=== PATIENT | female | born 1950 | race Caucasian/White ===

== ENCOUNTER 2016-04-28 10:25 | Emergency (ER) | payer SELFPAY ==
[~2016-04-28] VITALS: Wt 89.0 kg
[~2016-04-28 10:25] MED LIST: GLIP5TAB82; NAPR-638; SERT100T; VALS40TA2
--- NOTE | 2016-04-28 12:20 | EN ---
Date/Time of Note Date/Time of Note DATE: 04/28/16 TIME: 12:19 ER Progress Note Patient was not in the room when I went to see her. Patient cannot be found anywhere in the emergency department at this time. TO PETERSON NP Apr 28, 2016 12:20
== END 2016-04-28 15:05 | disposition left against medical advice (07) ==
LOC: FTE 10:25
DX: Z53.21 Procedure and treatment not carried out due to patient leaving prior to being seen by health care provider (principal)

== ENCOUNTER 2016-05-21 00:36 | Emergency (ER) | payer BC ==
[~2016-05-21] VITALS: Ht 170.2 cm; Wt 85.0 kg
[2016-05-21 01:08] VITALS: Ht 170.2 cm; Wt 85.0 kg
--- NOTE | 2016-05-21 02:14 | ERD ---
ER Documentation Chief Complaint Date/Time DATE: 05/21/16 TIME: 02:14 Chief Complaint Back pain. herniated disk. hx of back pain HPI Patient is a 65-year-old female past medical history of chronic back pain who presents to the emergency department the acute exacerbation of lower back pain. She states that her current pain level is 7 out of 10. Patient has been taking oxycodone daily for her pain. Patient states she last took oxycodone 3 hours ago. Patient states that the pain is in her lower back and radiates down both of her legs. She states that she frequently has "leg spasms." She denies any saddle anesthesia, numbness or tingling down her legs, urinary incontinence , stool incontinence. Patient denies any difficulty with walking. She denies any trauma or falls. Patient denies any fever, chills, nausea, vomiting, chest pain, shortness of breath or loss of consciousness. Patient brings an MRI report which shows that patient has L4-L5 moderate disc height loss with a synovial cyst of approximately 5 mm creating moderate to severe spinal canal stenosis. Report also states that patient has moderate disc loss at L5-S1. Report also states the patient has multilevel degenerative changes of the cervical spine as described above most severe at the C4 C5-C6-C7 levels. Moderate to severe facet arthropathy seen. Patient states that she saw a neurosurgeon who advised the patient that she needs to have surgery. Patient states that the first neurosurgeon she saw does not currently operate due to his age. Patient is waiting to be seen by a second neurosurgeon for further management of her symptoms including possible surgical repair. Patient is hoping to be seen by a neurosurgeon jillian. Copy of MRI report obtained. Copy will be scanned into the patient's chart. ROS All systems reviewed and are negative except as per history of present illness. Medications Home Meds Reported Medications Valsartan* (Diovan*) 40 Mg Tablet 10/03/10 Glipizide* (Glucotrol*) 5 Mg Tablet 11/09/09 Sertraline Hcl* (Zoloft*) 100 Mg Tablet 11/09/09 Naproxen Sodium (Aleve) 220 Mg Tablet 11/06/09 Allergies Allergies: Coded Allergies: Penicillins (Verified Allergy, Mild, RASH, 07/23/10) PMhx/Soc History of Surgery: Yes (HYSTERIC, SPINAL C2-C3, LEFT ARM FX WITH DOROTHY PLACEMENT.) Anesthesia Reaction: No Hx Neurological Disorder: No Hx Respiratory Disorders: No Hx Cardiac Disorders: Yes (HTN) Hx Psychiatric Problems: Yes (DEPRESSION) Hx Miscellaneous Medical Probl: No Hx Alcohol Use: No Hx Substance Use: No Hx Tobacco Use: No Smoking Status: Never smoker FmHx Family History: No diabetes Physical Exam Vitals Vital Signs Date Time Temp Pulse Resp B/P Pulse Ox O2 Delivery O2 Flow Rate FiO2 05/21/16 03:00 97 16 134/60 96 Room Air 05/21/16 01:08 96.9 102 20 161/70 98 Physical Exam GENERAL: Well-developed, well-nourished female. Appears in no acute distress. Laughing with her daughter at bedside. HEAD: Normocephalic, atraumatic. EYES: Pupils are equally reactive bilaterally. EOMs grossly intact. No conjunctival erythema. ENT: Moist mucous membranes. No uvula deviation. No kissing tonsils. NECK: Supple. No meningismus. Normal range of motion of the neck. LUNG: Clear to auscultation bilaterally. No rhonchi, wheezing, rales or coarse breath sounds. HEART: Regular rate and rhythm. No murmurs, rubs or gallops. BACK: No midline tenderness. Tender to palpation of bilateral lumbar paraspinous muscles. EXTREMITIES: Equal pulses bilaterally. No peripheral clubbing, cyanosis or edema. No unilateral leg swelling. NEUROLOGIC: Alert and oriented. Moving all four extremities without any difficulty. Normal speech. SKIN: Normal color. Warm and dry. No rashes or lesions. Results 24 hrs Current Medications Medications (Trade) Dose Ordered Sig/Valentino Route PRN Reason Start Time Stop Time Status Last Admin Dose Admin Morphine Sulfate (morphine) 4 mg ONCE ONCE IM 05/21/16 02:30 05/21/16 02:31 DC 05/21/16 02:34 Procedures/MDM MEDICAL DECISION MAKING: This is a 65-year-old female with DJD and synovial cyst at L4-L5 who presents with acute exacerbation of her pain. Vital signs were reviewed. Patient was afebrile. Patient denied any saddle anesthesia, urinary incontinence, bowel incontinence, or recent trauma. The patient denies any falls or new trauma, x- ray imaging was not obtained at this time. Patient was given morphine IM here in the emergency department she stated did improve her pain. Patient was noticed to be laughing with her daughter and appeared comfortable at bedside prior to discharge. Given these findings, the patient's presentation is most consistent with chronic back pain secondary synovial cyst and degenerative joint changes. I have a much lower clinical concern for cauda equine syndrome, spinal fractures, spinal metastases, osteomyelitis, aortic dissection, ruptured or leaking AA, or nephrolithiasis. PRESCRIPTIONS: None Continue oxycodone as prescribed. DISCHARGE: At this time, patient is stable for discharge and outpatient management. I have instructed the patient to follow-up with his/her primary care physician in 1-2 days. I encouraged the patient to call her primary care physician and see if she could be seen by a second neurosurgeon sooner than scheduled. On patient's discharge paperwork, I stated that patient should be accommodated sooner given ongoing pain. Patient was also given information for painting contractor. I have instructed the patient to promptly return to the ER for any new or worsening symptoms including increased pain, swelling, warmth, urinary incontinence, stool incontinence, weakness or numbness. The patient and/or family expressed understanding of and agreement with this plan. All questions were answered. Home care instructions were provided. Departure Diagnosis: Primary Impression: Synovial cyst of lumbar spine Additional Impression: Acute pain Condition: Stable Patient Instructions: Back Pain (Acute Or Chronic) Referrals: JESSIE DAVIES MUNTHER A MI, WEI MILLER, CHAD M. MD [facility] YOU HAVE RECEIVED A MEDICAL SCREENING EXAM AND THE RESULTS INDICATE THAT YOU DO NOT HAVE A CONDITION THAT REQUIRES URGENT TREATMENT IN THE EMERGENCY DEPARTMENT. FURTHER EVALUATION AND TREATMENT OF YOUR CONDITION CAN WAIT UNTIL YOU ARE SEEN IN YOUR DOCTORS OFFICE WITHIN THE NEXT 1-2 DAYS. IT IS YOUR RESPONSIBILITY TO MAKE AN APPOINTMENT FOR FOL-UP CARE. IF YOU HAVE A PRIMARY DOCTOR --you should call your primary doctor and schedule an appointment IF YOU DO NOT HAVE A PRIMARY DOCTOR YOU CAN CALL OUR PHYSICIAN REFERRAL HOTLINE AT IF YOU CAN NOT AFFORD TO SEE A PHYSICIAN YOU CAN CHOSE FROM THE FOLLOWING [facility] [address] [facility]. [facility] [address] [facility]. [facility] [address] [facility]. [facility] [address] [facility]. [facility] [address] [facility]. [facility]. [address] [facility]. [facility] YOU HAVE RECEIVED A MEDICAL SCREENING EXAM AND THE RESULTS INDICATE THAT YOU DO NOT HAVE A CONDITION THAT REQUIRES URGENT TREATMENT IN THE EMERGENCY DEPARTMENT. FURTHER EVALUATION AND TREATMENT OF YOUR CONDITION CAN WAIT UNTIL YOU ARE SEEN IN YOUR DOCTORS OFFICE WITHIN THE NEXT 1-2 DAYS. IT IS YOUR RESPONSIBILITY TO MAKE AN APPOINTMENT FOR FOLOW-UP CARE. IF YOU HAVE A PRIMARY DOCTOR --you should call your primary doctor and schedule and appointment IF YOU DO NOT HAVE A PRIMARY DOCTOR YOU CAN CALL OUR PHYSICIAN REFERRAL HOTLINE AT . IF YOU CAN NOT AFFORD TO SEE A PHYSICIAN YOU CAN CHOSE FROM THE FOLLOWING [facility] INSTITUTIONS: [facility] [address] [place] [address] [facility] [address] [place] [address] [facility] [address] [place] [address] Additional Instructions: Call your primary care doctor TOMORROW for an appointment during the next 1-2 days.See the doctor sooner or return here if your condition worsens before your appointment time. Follow-up with neurologist/neurosurgeon as scheduled. Patient needs to be accommodated to be seen as soon as possible. Patient should continue medication at home for pain management. Advised seeing painting contractor for further management of your pain. GT VASQUEZ PA-C May 21, 2016 02:14
[2016-05-21] MEDS ORDERED: morphine 10 MG INJ IM ONE (02:30)
[2016-05-21 03:00] VITALS: BP 134/60; PULSE 97; RESP 16
== END 2016-05-21 02:59 | disposition home or self-care (01) ==
LOC: FTE 00:36
DX: M71.38 Other bursal cyst, other site (principal); I10 Essential (primary) hypertension; E11.9 Type 2 diabetes mellitus without complications; Z79.84 Long term (current) use of oral hypoglycemic drugs
CPT/HCPCS: 96372; 99284; J2270

== ENCOUNTER 2016-09-02 22:25 | Emergency (ER) | payer BC ==
[~2016-09-02] VITALS: Ht 170.2 cm; Wt 85.0 kg
[2016-09-02 23:44] VITALS: Ht 170.2 cm; Wt 85.0 kg
[2016-09-03] MEDS ORDERED: HYDROCODONE/APAP (5/325) TAB PO ONE
--- NOTE | 2016-09-03 | ERA ---
ER Documentation Chief Complaint Date/Time DATE: 09/02/16 TIME: 23:57 Chief Complaint C/O LEFT HAND INJURY DUE TO ACCIDENTALLY FALLING AND LANDING ON HAND HPI 66-year-old female is presenting 3 hours status post mechanical fall. Patient caught her fall with her left hand and now has palmar hand pain. Patient has a history of hypertension and diabetes mellitus that is controlled with medication. Patient denies any numbness or tingling, wrist pain, injury to other areas of the body, or loss of consciousness. Patient has no other complaints at this time. ROS All systems reviewed and are negative except as per history of present illness. Medications Home Meds Active Scripts Ibuprofen* (Motrin*) 600 Mg Tab, 600 MG PO Q6H Y for PAIN AND OR ELEVATED TEMP, #30 TAB Prov:NETTE CEE PA-C 09/03/16 Hydrocodone/Acetaminophen (Belfast 5-325 Tablet) 1 Each Tablet, 1 TAB PO Q6H Y for PAIN, #20 TAB Prov:NETTE CEE PA-C 09/03/16 Reported Medications Valsartan* (Diovan*) 40 Mg Tablet 10/03/10 Glipizide* (Glucotrol*) 5 Mg Tablet 11/09/09 Sertraline Hcl* (Zoloft*) 100 Mg Tablet 11/09/09 Naproxen Sodium (Aleve) 220 Mg Tablet 11/06/09 Allergies Allergies: Coded Allergies: Penicillins (Verified Allergy, Mild, RASH, 07/23/10) PMhx/Soc History of Surgery: Yes (HYSTERIC, SPINAL C2-C3, LEFT ARM FX WITH DOROTHY PLACEMENT.) Anesthesia Reaction: No Hx Neurological Disorder: No Hx Respiratory Disorders: No Hx Cardiac Disorders: Yes (hypertension) Hx Psychiatric Problems: Yes (depression) Hx Miscellaneous Medical Probl: Yes (diabetes 2, francis's palsy, back pain, ddd, sweets syndrome) Hx Alcohol Use: No Hx Substance Use: No Hx Tobacco Use: No Physical Exam Vitals Vital Signs Date Time Temp Pulse Resp B/P Pulse Ox O2 Delivery O2 Flow Rate FiO2 09/02/16 23:44 98.4 84 18 198/93 100 Physical Exam Const: Overweight 66-year-old female sitting up in exam bed Head: Atraumatic Eyes: Normal Conjunctiva ENT: Normal External Ears, Nose and Mouth. Neck: Full range of motion..~ No meningismus. Resp: Clear to auscultation bilaterally Cardio: Regular rate and rhythm, no murmurs Abd: Soft, non tender, non distended. Normal bowel sounds Skin: No petechiae or rashes Back: No midline or flank tenderness Ext: Left fourth and fifth digits with mild ulnar deviation. A palmar side distal metatarsal joints have pain with palpation mild swelling and bruising. No cyanosis, or edema. No anatomical snuffbox tenderness. Neur: Awake and alert. Neurovascularly intact bilaterally. Range of motion in the fingers of the left hand decreased secondary to pain. Psych: Normal Mood and Affect Results 24 hrs Current Medications Medications (Trade) Dose Ordered Sig/Valentino Route PRN Reason Start Time Stop Time Status Last Admin Dose Admin Acetaminophen/ Hydrocodone Bitart (Belfast (5/325)) 1 tab ONCE ONCE PO 09/03/16 00:00 09/03/16 00:09 DC 09/03/16 00:29 Procedures/MDM 66-year-old female being worked up and evaluated for hand pain 3 hours status post FOOSH. Patient will be given an x-ray due to the history of trauma to evaluate for bony pathology. Patient will be given 5/325 mg Belfast in the ED for symptomatic relief. X-ray revealed the following:Fracture of the proximal metaphysis of the third, fourth and fifth metatarsals. Patient was 22 with a short arm splint that covers the third fourth and fifth digits and anatomical position. Patient was neurovascularly intact before and after splinting. There is no anatomical snuffbox tenderness and I have very little suspicion at this time for injury/ fracture of the scaphoid. I spoke with my attending Dr. Maynard and he agrees with the assessment and plan. Vital signs are stable. Patient will be discharged at this time with Belfast for discomfort and discharge instructions including instructions for orthopedic follow-up. The list of orthopedic institute have been given to the patient. Departure Diagnosis: Primary Impression: Fractured hand Qualified Code: S62.92XA - Fractured hand, left, closed, initial encounter Condition: Stable Additional Instructions: Follow-up with orthopedist and the next 1-2 days. Return the the emergency department immediately if symptoms worsen or change. If you have any questions regarding medications, ask your pharmacist or us before you leave. If any adverse reactions occur while taking your medications, discontinue the treatment and return to the emergency department immediately. Take your medications as directed, and complete the entire course of treatment. NETTE CEE PA-C Sep 03, 2016 00:00
--- NOTE | 2016-09-03 01:12 | RADRPT ---
PROCEDURE: XR Hand. CLINICAL INDICATION: Trauma. Pain. TECHNIQUE: Three views of the left hand were obtained. COMPARISON: No prior studies are available for comparison. FINDINGS: There are comminuted impacted fractures of the proximal metaphysis of the third, fourth and fifth di git proximal phalanx sees. There is no dislocation. Joint relationships are maintained. Bone mine ralization is within normal limits. Soft tissues are unremarkable. IMPRESSION: Fracture of the proximal metaphysis of the third, fourth and fifth metatarsals. RPTAT: HMVK .Sarthak Villarreal MD, MD Date Time Electronically viewed and signed by .Sarthak Villarreal MD, on 09/03/2016 01:11 .K/
[2016-09-03] MEDS ORDERED: HYDR-906 PO (01:27)
[2016-09-03] MEDS ORDERED: IBUP-1542 PO (01:27)
[2016-09-03] MEDS ORDERED: HYDROCODONE/APAP (7.5/325) TAB PO ONE (03:00)
[2016-09-03 03:10] VITALS: BP 174/70; PULSE 76; RESP 18; TEMP 97.6
== END 2016-09-03 03:10 | disposition home or self-care (01) ==
LOC: FTE 22:25
DX: S62.615A Displaced fracture of proximal phalanx of left ring finger, initial encounter for closed fracture (principal); I10 Essential (primary) hypertension; E11.9 Type 2 diabetes mellitus without complications; S62.613A Displaced fracture of proximal phalanx of left middle finger, initial encounter for closed fracture; S62.617A Displaced fracture of proximal phalanx of left little finger, initial encounter for closed fracture; W18.39XA Other fall on same level, initial encounter; Y92.9 Unspecified place or not applicable; Z79.84 Long term (current) use of oral hypoglycemic drugs